=== PATIENT | female | born 1985 | race Caucasian/White ===

== ENCOUNTER 2020-05-19 15:18 | Outpatient (REF) | payer BC, SELFPAY ==
[2020-05-20 08:26] LABS: TSH (W/Ref FT4) 2.27 uIU/mL (0.36-3.74)
[2020-05-20 08:29] LABS: Abs Immature Grans 0.04 10^3/uL (0.0-0.06); Absolute Basophil Count 0.08 10^3/uL (0.0-0.2); Absolute Lymphocyte Count 2.93 10^3/uL (1.2-3.4); Absolute Monocyte Count 0.48 10^3/uL (0.1-0.8); Absolute Neutrophil Count 6.22 10^3/uL (1.2-6.7); Basophils % 0.8; Eosinophils % 4.9; HCT 44.7 % (36.0-46.0); HGB 14.5 g/dL (11.2-15.7); Immature Grans % 0.4; Lymphocytes % 28.6; MCH 28.9 pg (27.0-33.0); MCHC 32.4 % (32.0-36.0); MPV 12.2 fL (8.0-11.0); Monocytes % 4.7; Neutrophils % 60.6; Nucleated RBC 0 %; Platelet Count 278 10^3/uL (130-400); RBC 5.02 10^6/uL (3.93-5.22); RDW-SD 42.6 fL; WBC 10.25 10^3/uL (4.4-10.8)
== END 2020-05-19 15:38 ==
LOC: NCHCN 15:18
PROVIDERS: PCP Internal Medicine; Visit Provider Family Medicine
DX: R53.83 Other fatigue (principal); E34.9 Endocrine disorder, unspecified; M79.7 Fibromyalgia
CPT/HCPCS: 84443; 85025

== ENCOUNTER 2021-11-29 18:49 | Outpatient (CLI) | payer BC, SELFPAY ==
--- NOTE | 2021-11-29 19:00 | DI.RAD_ITS ---
Exam(s) XR TOE LT FIFTH EXAM: XR TOE LT FIFTH CLINICAL HISTORY: pain, possible fracture. TECHNIQUE: 2D digital imaging was performed. Three images were obtained. COMPARISON: No exams were available for comparison FINDINGS: BONES: No acute fracture is present. No bony destructive lesion is seen. JOINTS: No dislocation present. SOFT TISSUE: Normal. IMPRESSION: No evidence of acute fracture, dislocation, or subluxation. DATA REPOSITORY: RADIATION DOSE DELIVERED:
--- NOTE | 2021-11-29 19:50 | DI.VRAD_ITS ---
PROCEDURE INFORMATION: Exam: XR Left Toe(s) Exam date and time: 11/29/2021 7:25 PM Age: 36 years old Clinical indication: Pain; Toes; Left; Additional info: Left fifth toe pain TECHNIQUE: Imaging protocol: XR Left toes. Views: Minimum 2 views. COMPARISON: No relevant prior studies available. FINDINGS: Bones/joints: Osseous mineralization is normal. There are no inflammatory osseous erosive changes. The joint spaces are maintained without degenerative changes. No focal osseous lesions are identified. There are no acute displaced fractures or subluxations. Soft tissues: There is no evidence of a radio-opaque foreign body. IMPRESSION: No osseous abnormalities identified. Dictated and Authenticated by: Monico Miranda MD. Ordering:JESUS Peres MD
== END 2021-11-29 18:50 | disposition home or self-care (01) ==
LOC: LBN 18:54
PROVIDERS: PCP Internal Medicine; Visit Provider Physician Assistant Medical
DX: M79.675 Pain in left toe(s) (principal)
CPT/HCPCS: 73660

== ENCOUNTER 2022-08-11 17:38 | Emergency (ER) | payer MEDICAID, SELFPAY ==
--- OUTSIDE RECORDS SUMMARY | 2022-08-11 17:45 | XMS_ITS | CCD ---
:1985 Author Care Team Providers Name Role Phone LUBNA VELEZ CNM Attending Physician Unavailable Vital Signs Unknown or Not Available. Allergies Allergy Code Allergy Type Reaction Status SHELLFISH 0 Food allergy angiodema Active No Known Drug Allergies 0 No known drug allergies Active Procedures Unknown or Not Available. History of Immunizations Unknown or Not Available. Problems Unknown or Not Available. Results Unknown or Not Available. Active Medications Unknown or Not Available. Medications Administered During Visit Unknown or Not Available. Encounters Encounter Diagnosis Diagnosis Code Start Date Encounter for other general counseling and advice on Z3009 12/23/2020 contraception Social History Smoking Status Code Start Date End Date Current every day smoker [id number] 2001 Patient Decision Aids Unknown or Not Available. Discharge Instructions You were admitted to [facility] on 12/23/2020 14:43 with a principal diagnosis of Encounter for other general counseling and advice on contraception You were discharged from [facility] on 12/23/2020 14:43 Should you have any questions prior to d ischarge, please contact a member of your healthcare team. If you have left the ho spital and have any questions, please contact your primary care physician. Chief Complaint and Reason For Visit Unknown or Not Available. Function Status Unknown or Not Available. Plan of Care Unknown or Not Available. Referral/Transition of Care Unknown or Not Available.
--- OUTSIDE RECORDS SUMMARY | 2022-08-11 17:45 | XMS_ITS ---
:1985 Author Organization [facility] Address [address], [address] [place] [address] Care Team Providers Name Role Phone Shanta Goodman Unavailable Unavailable PROBLEMS Type Condition ICD9-CM Code NCK34-XC Code Onset Condition SNO MED Code Dates Status Problem Migraine 346.10 Active 410597094 without aura - common Problem Abuse nicotine 305.1 Active 37180 3000 ALLERGIES Substance Reaction Event Type Date Status shellfish Unknown Non Drug Allergy Jul, Active ENCOUNTERS Encounter Location Date Diagnosis [facility] [address] [place] [address], [address], [place] [address] [facility] [address] [place] [address], [address] Jul, Implanon f/u v25.43 [place] [address] IMMUNIZATIONS No Known Immunizations SOCIAL HISTORY Never Assessed REASON FOR REFERRAL FUNCTIONAL STATUS PLAN OF CARE VITAL SIGNS Height 65.5 in 2011-07-23 Weight 194 lbs 2011-07-23 BMI 31.79 kg/m2 2011-07-23 Blood pressure systolic 90 2011-07-23 Blood pressure diastolic 60 2011-07-23 MEDICATIONS Medication Instructions Dosage Frequency Start Date End Date Duration S tatus Implanon 68 MG as directed Activ e PROCEDURES Procedure Date Ordered Result Body Site Surgical Tray Jul 23, 2011 Nexplanon Removal Jul 23, 2011 RESULTS No Results REASON FOR VISIT records request, new Implanon removal Insurance Providers [facility] Member Patient Patient Patient Patient Patient Subscriber Subscriber Subscriber Group Insurance Plan Plan Plan Plan ID Relationship Address Phone Name Date of ID Name Date of No Type Insurance Insurance Insurance Coverage to Subscriber Address Phone Name Dates MEDICAID [phone] MEDICAID self Merlene 1985 [id number] [place] [address] [id number] [place] [id number]
--- OUTSIDE RECORDS SUMMARY | 2022-08-11 17:45 | XMS_ITS | CCD ---
:1985 Author Care Team Providers Name Role Phone BRANDT GALICIA MD Attending Physician Unavailable BRANDT GALICIA MD Er Physician 1 Unavailable Vital Signs Unknown or Not Available. Allergies Allergy Code Allergy Type Reaction Status SHELLFISH 0 Food allergy angiodema Active No Known Drug Allergies 0 No known drug allergies Active Procedures Unknown or Not Available. History of Immunizations Unknown or Not Available. Problems Unknown or Not Available. Results TEST (URINE) QUALITATIVE - Col lect Date/Time: 01/12/2021 18:40 Test Name Code Test Result Test Units Test Ref Range TEST 2106-3 NEGATIVE N/A URINALYSIS WITH REFLEX CULT IF POSITIVE - Collect Date/Time: 01/12/2021 18:40 Test Name Code Test Result Test Units Test Ref Range COLLECTION MODE: Clean Catch N/A Color 5778-6 YELLOW N/A yellow Appearance 5767-9 CLEAR N/A clear Glucose urine 00090-9 NEGATIVE N/A negative mg/dl Bilirubin 5770-3 NEGATIVE N/A negative Ketones 2514-8 NEGATIVE N/A negative mg/dl Spec gravity 5811-5 1.015 N/A 1.003 - 1.030 pH urine 2756-5 7.0 N/A 5.0 - 7.0 Protein 56537-9 NEGATIVE N/A negative mg/dl Urobilinogen 71807-9 0.2 N/A <or= 1 EU/dl Nitrite. 5802-4 NEGATIVE N/A negative Blood 5794-3 NEGATIVE N/A negative Leukocytes. NEGATIVE N/A negative MICROSCOPIC NOT INDICAT N/A Active Medications Unknown or Not Available. Medications Administered During Visit Unknown or Not Available. Encounters Encounter Diagnosis Diagnosis Code Start Date Headache, unspecified R519 01/12/2021 Social History Smoking Status Code Start Date End Date Current every day smoker [id number] 2001 Patient Decision Aids Unknown or Not Available. Discharge Instructions You were admitted to [facility] on 01/12/2021 17:02 with a principal diagnosis of Headache, unspecified You had the following tests done: PREGN IDALIA TEST (URINE) QUALITATIVE URINALYSIS WITH REFLEX CULT IF POSITIVE You were discharged from [facility] on 01/12/2021 19:00 Should you have any questions prior to d ischarge, please contact a member of your healthcare team. If you have left the ho spital and have any questions, please contact your primary care physician. Chief Complaint and Reason For Visit Chief Complaint Date of Onset MIGRAINE Function Status Unknown or Not Available. Plan of Care Unknown or Not Available. Referral/Transition of Care Unknown or Not Available.
[2022-08-11 17:47] VITALS: BP 149/104; PULSE 86; RESP 18; TEMP 37; O2SAT 100
== END 2022-08-11 19:17 ==
LOC: ER 17:43
PROVIDERS: PCP Family Medicine
DX: Z53.21 Procedure and treatment not carried out due to patient leaving prior to being seen by health care provider (principal)

== ENCOUNTER 2023-01-14 17:01 | Outpatient (REF) | payer MEDICAID, SELFPAY ==
--- OUTSIDE RECORDS SUMMARY | 2023-01-14 17:07 | XMS_ITS | CCD ---
Author Name Unknown Address [address] [place] [address] [phone] Organization Unknown Address [address] [place] [address] [phone] Care Team Providers Care Informatica Name Role Phone LUBNA VELEZ HITESH Attending Physician [phone] Vital Signs Unknown or Not Available. Allergies [...] other general counseling and advice on contraception Z3009 12/23/2020 Social History Smoking Status Code Start Date End Date Current every day smoker [id number] 2001 Patient Decision Aids Unknown or Not Available. Discharge Instructions You were admitted to [facility] on 12/23/2020 14:43 with a principal diagnosis of Encounter for other general counseling and advice on contraception You were discharged from [facility] on 12/23/2020 14:43 Should you have any questions prior to discharge, please contact a member of your healthcare team. If you have left the hospital and have any questions, please contact your primary care physician. Chief Complaint and Reason For Visit Unknown or Not Available. Function Status Unknown or Not Available. Plan of Care Unknown or Not Available. Referral/Transition of Care Unknown or Not Available.
--- OUTSIDE RECORDS SUMMARY | 2023-01-14 17:07 | XMS_ITS | Patient Health Record ---
Author Name Unknown Organization [facility] Address [address] [place] [address] Care Team Providers Care District Ranger Name Role Phone Maxine NAVARRETE, Shanta Unavailable Bairon ADHIKARI Unavailable Unavailable ALLERGIES Allergen (clinical drug ingredient) Drug/Non Drug Allergy documented on EMR Reaction Allergy Type Onset Date Status Shellfish (FN) shellfish (uncoded) Unknown Allergy Active REASON FOR REFERRAL No Information MEDICATIONS Medication SIG (Take, Route, Fr equency, Duration) Notes Start Date End Date Status Implanon 68 MG as directed Subcutaneous Active SOCIAL HISTORY Sex Assigned At : Social History Observation Description Sex Assigned At Unknown PROBLEMS Problem Type ICD Code Onset Dates Problem Status W/U Status Risk SNOMED Code Notes Problem Abuse nicotine (305.1) Active confirmed Tobacco user (122549233) Problem Migraine without aura - common (346.10) Active confirmed Migraine without aura, not refractory (763144950) PLAN OF TREATMENT No Information Insurance Providers Payer Name Payer Address Payer Phone Subscriber Number Group Number Insured Name Patient Relationship to Insured Coverage Start Date Coverage End Date [place]ICAID [place] [address] [place] [address] [id number] Merlene Gonzalez Self - patient is the insured MEDICAL (GENERAL) HISTORY Medical History History ICD Code Arthritis migraine headaches occasional smoker Hospitalization History Reason Date(Month/Year) childbirth
--- OUTSIDE RECORDS SUMMARY | 2023-01-14 17:07 | XMS_ITS | CCD ---
Author Name Unknown Address [address] [place] [address] [phone] Organization Unknown Address [address] [place] [address] [phone] Care Team Providers Care Colloid Mill Operator Name Role Phone BRANDT GALICIA MD Attending Physician [phone] BRANDT GALCIIA MD Er Physician [phone] Vital Signs Unknown or Not Available. Allergies Allergy Code Allergy Type Reaction Status SHELLFISH 0 Food allergy angiodema Active No Known Drug Allergies 0 No known drug allergies Active Procedures Unknown or Not Available. History of Immunizations Unknown or Not Available. Problems Unknown or Not Available. Results TEST (URINE) QUALI TATIVE - Collect Date/Time: 01/12/2021 18:40 Test Name Code Test Result Test Units Test Ref Rang e TEST 2106-3 NEGATIVE N/A URINALYSIS WITH REFLEX CULT IF POSITIVE - Collect Date/Time: 01/12/2021 18:40 Test Name Code Test Result Test Units Test Ref Rang e COLLECTION MODE: Clean Catch N/A Color 5778-6 YELLOW N/A yellow Appearance 5767-9 CLEAR N/A clear Glucose urine 42918-3 NEGATIVE N/A negative mg /dl Bilirubin 5770-3 NEGATIVE N/A negative Ketones 2514-8 NEGATIVE N/A negative mg/dl Spec gravity 5811-5 1.015 N/A 1.003 - 1.03 0 pH urine 2756-5 7.0 N/A 5.0 - 7.0 Protein 57399-5 NEGATIVE N/A negative mg/dl Urobilinogen 92618-7 0.2 N/A <or= 1 EU/dl Nitrite. 5802-4 NEGATIVE N/A negative Blood 5794-3 NEGATIVE N/A negative Leukocytes. NEGATIVE N/A negative MICROSCOPIC NOT INDICAT N/A Active Medications Unknown or Not Available. Medications Administered During Visit Unknown or Not Available. Encounters Encounter Diagnosis Diagnosis Code Start Date Headache, unspecified R519 01/12/2021 Social History Smoking Status Code Start Date End Date Current every day smoker [id number] 2001 Patient Decision Aids Unknown or Not Available. Discharge Instructions You were admitted to on 01/12/2021 17:02 with a principal diagnosis of Headache, unspecified You had the following tests done: TEST (URINE) QUALITATIVEURINALYSIS WITH REFLEX CULT IF POSITIVE You were discharged from on 01/12/2021 19:00 Should you have any [...]
[2023-01-14 23:12] LABS: HCT 43.9 % (36.0-46.0); HGB 14.3 g/dL (11.2-15.7); MCH 27.9 pg (27.0-33.0); MCHC 32.6 % (32.0-36.0); MCV 86 fL (80-95); Platelet Count 295 10^3/uL (130-400); RBC 5.13 10^6/uL (3.93-5.22); RDW 12.8 % (11.7-14.6); RDW-SD 39.9 fL; WBC 8.23 10^3/uL (4.4-10.8)
[2023-01-14 23:26] LABS: ESR 25 mm/hr (0-20)
[2023-01-14 23:42] LABS: ALT 96 U/L (14-59); AST 30 U/L (15-37); Albumin 4.2 g/dL (3.4-5.0); Alkaline Phosphatase 112 U/L (46-116); Anion Gap 10.6 mmol/L (3-11); BUN 17 mg/dL (7-18); Bilirubin, Total 0.3 mg/dL (0.2-1.0); C-Reactive Protein 0.47 mg/dL (0.0-0.3); CO2 25.4 mmol/L (21.0-32.0); CREATININE 1.1 mg/dL (0.55-1.02); Calcium 9.2 mg/dL (8.5-10.1); Chloride 102 mmol/L (98-107); Estimated GFR 66.37 (mL/min/1.73m2); Glucose 150 mg/dL (74-106); Potassium 4.4 mmol/L (3.5-5.1); Sodium 138 mmol/L (136-145); TSH (W/Ref FT4) 3.42 uIU/mL (0.36-3.74); Total Protein 7.8 g/dL (6.4-8.2)
[2023-01-14 23:49] LABS: Vitamin D 25 Total 33.7 ng/mL (30-100)
[2023-01-16 19:38] LABS: Rheumatoid Factor <8.6 IU/mL (<12.0)
[2023-01-17 15:26] LABS: ANA Interpretation Positive (Negative); ANA Titer Pattern 1:80 Speckled
== END 2023-01-14 17:02 | disposition home or self-care (01) ==
LOC: NCHCN 17:01
PROVIDERS: PCP Family Medicine; Visit Provider Family Medicine
DX: R53.83 Other fatigue (principal); R73.03 Prediabetes; M79.642 Pain in left hand; E66.9 Obesity, unspecified
CPT/HCPCS: 80053; 82306; 85027; 85652; 83036; 84443; 86038; 86140; 86431

== ENCOUNTER 2023-02-11 01:03 | Outpatient (CLI) | payer MEDICAID, SELFPAY ==
--- NOTE | 2023-02-11 | DI.RAD_ITS ---
Exam(s) XR HAND LT COMPLETE EXAM: XR HAND LT COMPLETE CLINICAL HISTORY: LT HAND PAIN M79.642. TECHNIQUE: 2D digital imaging was performed. Three views. COMPARISON: No exams were available for comparison FINDINGS: BONES: No acute fracture is present. No bony destructive lesion is seen. JOINTS: No dislocation present. SOFT TISSUE: Normal. IMPRESSION: Unremarkable radiographs of the left hand. DATA REPOSITORY: RADIATION DOSE DELIVERED:
== END 2023-02-11 01:23 ==
LOC: DI 01:03
PROVIDERS: PCP Family Medicine; Visit Provider Family Medicine
DX: M79.642 Pain in left hand (principal)
CPT/HCPCS: 73130

== ENCOUNTER → 2023-10-04 00:26 | Outpatient (CLI) | payer MEDICAID, SELFPAY ==
--- NOTE | 2023-10-04 | DI.RAD_ITS ---
Exam(s) XR THUMB LT EXAM: XR THUMB LT CLINICAL HISTORY: PAIN LT THUMB,M79.645. TECHNIQUE: 2D digital imaging was performed. COMPARISON: No exams were available for comparison FINDINGS: 3 views No evidence of acute fracture nor dislocation. Bone density normal. No osseous lesions. There is mild-moderate degenerative change at the 1st carpometacarpal joint, this being the articulat ion between the thumb metacarpal and the trapezium. Other articulations of the thumb appear unremark able. IMPRESSION: Degenerative change noted at the 1st carpometacarpal joint DATA REPOSITORY: RADIATION DOSE DELIVERED:
== END ==
PROVIDERS: PCP Family Medicine; Visit Provider Family Medicine
DX: M18.32 Unilateral post-traumatic osteoarthritis of first carpometacarpal joint, left hand (principal)
CPT/HCPCS: 73140

== ENCOUNTER 2025-01-18 19:00 | Outpatient (REF) | payer MEDICAID, SELFPAY ==
[2025-01-18 15:35] LABS: COMMENT (LAB VIEW ONLY) 313.73 mg/dL; Microalb ug/mg Crea 3.0 ug/mg Cr
== END 2025-01-18 19:01 | disposition home or self-care (01) ==
LOC: NCHCN 19:00
PROVIDERS: PCP Family Medicine; Visit Provider Family Medicine
DX: E11.9 Type 2 diabetes mellitus without complications (principal)
CPT/HCPCS: 82043; 82570

== ENCOUNTER 2025-05-03 13:06 | Outpatient (REF) | payer MEDICAID, SELFPAY ==
[2025-05-03 15:35] LABS: COMMENT (LAB VIEW ONLY) 130.09 mg/dL; Microalb ug/mg Crea 9.9 ug/mg Cr
== END 2025-05-03 13:07 | disposition home or self-care (01) ==
LOC: NCHCN 13:06
PROVIDERS: PCP Family Medicine; Visit Provider Family Medicine
DX: E11.9 Type 2 diabetes mellitus without complications (principal)
CPT/HCPCS: 82043; 82570

== ENCOUNTER 2025-05-14 09:30 | Outpatient (REF) | payer MEDICAID, SELFPAY ==
[2025-05-17 11:41] LABS: Chlamydia Result Negative (Negative); GC Result Negative (Negative)
== END 2025-05-14 09:31 | disposition home or self-care (01) ==
LOC: LBN 09:30
PROVIDERS: PCP Family Medicine; Visit Provider Obstetrics & Gynecology
DX: Z11.3 Encounter for screening for infections with a predominantly sexual mode of transmission (principal)
CPT/HCPCS: 87491; 87591

== ENCOUNTER → 2025-05-21 03:17 | Outpatient (CLI) | payer MEDICAID, SELFPAY ==
--- NOTE | 2025-05-21 | DI.MAMMO_ITS ---
Exam(s) MAMMO SCREENING EXAM: MAMMO SCREENING CLINICAL HISTORY: SCREENING MAMMO Z12.31 TECHNIQUE: Bilateral full field digital CC and MLO mammographic images were obtained with 3D tomosynthesis and utilizing computer aided detection (CAD). COMPARISON: This is a baseline examination. There are no priors for comparison. FINDINGS: Masses/Architectural Distortion: No suspicious masses or areas of architectural distortion are present. Microcalcifications: No suspicious pleomorphic-type are seen. Skin Thickening/Nipple Retraction: None. IMPRESSION: 1. There are no findings to suggest malignancy. 2. Unless there is more urgent need, screening mammography is recommended, as per [employer] guidelines. BI-RADS Category 1 - Negative Breast Density - Category A - The breast are almost entirely fatty. Breast density Category C or D implies that the patient has dense breast tissue. Dense breast tissue can make it harder to find cancer on a mammogram. Dense breast tissue is also associated with an increased risk of breast cancer. This information about the result of the mammogram report was provided to the patient to raise their awareness. Use this report when you speak with the patient about their risks for breast cancer, which includes their family history. At that time, you may recommend additional screening tests (Ultrasound or MRI) as these tests may add significant information. A negative radiographic report should not delay biopsy if a dominant or clinically suspicious mass is present. Up to ten percent of cancers are not identified on mammography. A negative report may reinforce clinical impression. Adenosis and dense breasts may obscure an underlying neoplasm. False positive reports average 6 to 10%. Patient will receive a letter notifying them of these results.
== END ==
LOC: DI 03:17
PROVIDERS: PCP Family Medicine; Visit Provider Family Medicine
DX: Z12.31 Encounter for screening mammogram for malignant neoplasm of breast (principal)
CPT/HCPCS: 77063; 77067